=== PATIENT | female | born 1990 | race Caucasian/White ===

== ENCOUNTER 2017-07-03 12:55 | Emergency (ER) | payer MEDICARE, OTHER ==
[~2017-07-03] VITALS: Ht 180.3 cm; Wt 94.7 kg
[2017-07-03] MEDS ORDERED: [UNRECOGNIZED DRUG - REMARK] PO (13:33)
--- NOTE | 2017-07-03 14:23 | REP ---
Duplex extremity venous ultrasound: Bilateral lower extremities. History: Question DVT. Findings: The deep veins are anechoic and fully compressible from the groin to the popliteal fossa in the left and right lower extremity. Color flow imaging is homogeneous. Spectral Doppler interrogation demonstrates intact respiratory variation in flow and normal manual augmentation of flow. There is no evidence of deep vein thrombosis. Impression: Negative bilateral lower extremity duplex venous ultrasound. No evidence of deep vein thrombosis. Signed by Jovany Macias MD 07/03/2017 02:16 P
[2017-07-03 14:59] VITALS: BP 115/68
== END 2017-07-03 15:00 | disposition home or self-care (01) ==
LOC: M ED 12:55
DX: O26.893 Other specified pregnancy related conditions, third trimester (principal); R60.0 Localized edema; Z3A.26 26 weeks gestation of pregnancy

== ENCOUNTER 2017-09-30 19:49 | Inpatient (IN) | payer MEDICARE, OTHER ==
[~2017-09-30] VITALS: Ht 180.3 cm; Wt 113.2 kg
[~2017-09-30 19:49] MED LIST: [UNRECOGNIZED DRUG - REMARK] PO
[2017-09-30 20:03] VITALS: BP 118/74
[2017-09-30] MEDS ORDERED: PREN1PAK PO (20:48)
[2017-09-30 22:17] VITALS: BP 141/63
[2017-09-30 22:45] LABS: MEAN CORPUSCULAR HEMOGLOBIN 32.4 pg (27.0-33.0); MEAN CORPUSCULAR HGB CONC 33.9 g/dl (32.0-36.5); MEAN CORPUSCULAR VOLUME 95.5 fl (80.0-96.0); PLATELET COUNT, AUTOMATED 232 10^3/uL (150-450); RED CELL DISTRIBUTION WIDTH 12.1 % (11.5-14.5); WHITE BLOOD COUNT 15.1 10^3/uL (4.0-10.0)
[2017-09-30] MEDS ORDERED: OXYTOCIN 30 UNITS IN 0.9% NaCl 500ML IV BAG (J2590) As Ordered ONE (22:51)
[2017-09-30 23:02] VITALS: BP 129/73
[2017-09-30 23:17] VITALS: BP 122/61
[2017-09-30] MEDS ORDERED: OXYTOCIN DRIP 30 UNITS in APPROPRIATE DILUENT 1 EA IV SCH (23:18)
[2017-09-30] MEDS ORDERED: DOCUSATE SODIUM 100 MG CAP PO PRN (23:30)
[2017-09-30] MEDS ORDERED: LIDOCAINE 1% MDV INJ 50 ML VIAL INFIL ONE (23:30)
[2017-09-30] MEDS ORDERED: METHYLERGONOVINE MALEATE 0.2 MG TAB PO PRN (23:30)
[2017-09-30] MEDS ORDERED: MEASLES,MUMPS,RUBELLA VACCINE INJ (MMR-II) (90707) SC SCH (23:30)
[2017-09-30] MEDS ORDERED: RHOGAM 300 MCG (1500 IU) INJ (J2790) IM SCH (23:30)
[2017-09-30] MEDS ORDERED: DIBUCAINE 1% OINTMENT 30GM TOP PRN (23:30)
[2017-09-30] MEDS ORDERED: MOM 30ML SUSPENSION UDC PO PRN (23:30)
[2017-09-30] MEDS ORDERED: ANUSOL HC CREAM 30GM TOP PRN (23:30)
[2017-09-30 23:36] VITALS: BP 135/71
[2017-09-30 23:47] VITALS: BP 151/70
[2017-10-01] VITALS (37 sets, daily range): BP systolic 82–150; BP diastolic 44–78
[2017-10-01] MEDS ORDERED: OXYTOCIN DRIP 30 UNITS in APPROPRIATE DILUENT 1 EA IV ONE ×2
[2017-10-01] MEDS ORDERED: METHYLERGONOVINE MALEATE 0.2 MG/ML VIAL (J2210) As Ordered ONE ×2 (00:03→00:04)
[2017-10-01] MEDS ORDERED: miSOPROStol 200 MCG TAB (S0191) PR ONE (00:15)
[2017-10-01] MEDS ORDERED: METHYLERGONOVINE MALEATE 0.2 MG/ML VIAL (J2210) IM ONE (00:15)
[2017-10-01 02:02] LABS: MEAN CORPUSCULAR HEMOGLOBIN 32.4 pg (27.0-33.0); MEAN CORPUSCULAR HGB CONC 33.8 g/dl (32.0-36.5); MEAN CORPUSCULAR VOLUME 95.9 fl (80.0-96.0); PLATELET COUNT, AUTOMATED 186 10^3/uL (150-450); RED CELL DISTRIBUTION WIDTH 12.1 % (11.5-14.5); WHITE BLOOD COUNT 19.3 10^3/uL (4.0-10.0)
[2017-10-01] MEDS ORDERED: METHYLERGONOVINE MALEATE 0.2 MG/ML VIAL (J2210) IM STA (02:30)
[2017-10-01] MEDS ORDERED: CARBOPROST TROMETHAMINE 250 MCG/ML AMP IM ONE (02:30)
[2017-10-01] MEDS: ACETAMINOPHEN 500 MG TAB PO PRN ×2 (03:15→13:25)
[2017-10-01 05:12] LABS: MEAN CORPUSCULAR HEMOGLOBIN 32.9 pg (27.0-33.0); MEAN CORPUSCULAR HGB CONC 34.9 g/dl (32.0-36.5); MEAN CORPUSCULAR VOLUME 94.4 fl (80.0-96.0); PLATELET COUNT, AUTOMATED 220 10^3/uL (150-450); WHITE BLOOD COUNT 18.8 10^3/uL (4.0-10.0)
[2017-10-01] MEDS: IBUPROFEN 800 MG TAB PO PRN ×2 (08:17→17:43)
--- NOTE | 2017-10-01 11:03 | HPE ---
DATE OF ADMISSION: 09/30/2017 REASON FOR ADMISSION: Labor. HISTORY OF THE PRESENT ILLNESS: Mrs. Daniel is a 27-year-old 3, para 1 who presents at 39 weeks 0 days with an estimated date of delivery of 10/07/2017 with a complaint of contractions. She denied any vaginal bleeding or leakage of fluid. She presents as an unregistered patient. She obtains her care at [facility] [place] [facility] with her initiating care in the first trimester and has been appropriate throughout. PAST MEDICAL HISTORY: None. PAST SURGICAL HISTORY: None. PAST OBSTETRICAL HISTORY: She is a 3, para 1. She has had one term vaginal delivery. MEDICATIONS: None. ALLERGIES: She has no known drug allergies. SOCIAL HISTORY: Denies any alcohol, tobacco or drug use during her . PHYSICAL EXAMINATION: Vital signs stable. She is afebrile. She has a category 1 heart rate tracing with contractions on tocometer. General appearance is well appearing. No acute distress. Her abdomen is gravid, nontender. Cervical Exam: She is 5 cm dilated, completely effaced, 0 station. Her labs: Blood type is AB positive, antibody screen is negative, rubella is immune, RPR is nonreactive. Hepatitis surface antigen is negative. HIV is negative. Chlamydia and gonorrhea screens are negative. She had a normal 1-hour Glucola, and she is GBS negative. ASSESSMENT: 1. This patient is a 27-year-old 3, para 1 at 39 weeks 0 days in active labor. 2. Reassuring status. PLAN: 1. Admit to labor and delivery. CBC, RPR, type and screen, urine toxicology screen. 2. Anticipate spontaneous vaginal delivery.
--- NOTE | 2017-10-01 11:15 | DN ---
DATE: 09/30/2017 TIME OF : 2254 hours GENDER: Female. SCORES: 8 and 8. WEIGHT: 7 pounds 9 ounces, 3448 grams. ANESTHESIA: None. LACERATIONS: First-degree midline laceration. ESTIMATED BLOOD LOSS: 300 mL. COUNTS: Five laparotomy sponges accounted for prior to and after the delivery. Two sharps were removed from the delivery field. DELIVERY NOTE: On 09/30/2017, at 2254 hours, this patient, a 27-year-old, 3, now para 2 had a spontaneous vaginal delivery of a live born female infant. scores 8 and 8. Weight was 7 pounds 9 ounces at 3440 grams. Head was delivered occiput anterior (OA) followed by delivery of left anterior shoulder, right posterior shoulder and corpus. was handed to the mom with a good cry. Cord was clamped times two, was cut by the father of the baby under my direction. Cord blood was obtained. Placenta was then drained and delivered grossly intact. A premixed bag of 500 mL of normal saline with 30 units of Pitocin was bolused along with uterine massage until the uterus was firm. On inspection, there was a first-degree midline laceration, which was initially infused with 1% lidocaine, then repaired with #3-0 Vicryl Rapide. On re-inspection, the cervix, vagina and perineum were grossly intact and hemostatic. Mom and baby recovering in stable condition. The couple has decided to name their daughter
[2017-10-01] MEDS: PRENATAL VITAMINS CHEWABLE TABLET PO SCH (11:24)
[2017-10-02 01:54] VITALS: BP 110/62
[2017-10-02] MEDS: IBUPROFEN 800 MG TAB PO PRN ×2 (02:06→08:49)
[2017-10-02 05:58] VITALS: BP 102/51
[2017-10-02] MEDS ORDERED: ACET50TA PO (07:34)
[2017-10-02] MEDS ORDERED: ADVI200C5 PO (07:35)
[2017-10-02] MEDS ORDERED: COLA100C5 PO (07:36)
[2017-10-02] MEDS ORDERED: MILKSUS PO (07:38)
[2017-10-02] MEDS: PRENATAL VITAMINS CHEWABLE TABLET PO SCH (08:48)
== END 2017-10-02 14:30 | disposition home or self-care (01) | DRG 774 ==
LOC: M LDO 19:49 → MERGE 22:08 → M LDI 22:08 → M OBS 10-01 10:50
PROVIDERS: ADMIT Obstetrics & Gynecology; ATTEND Obstetrics & Gynecology
PROC: 10E0XZZ Delivery of Products of Conception, External Approach (ICD-10-PCS; principal; 2017-09-30)
PROC: 0HQ9XZZ Repair Perineum Skin, External Approach (ICD-10-PCS; 2017-09-30)
DX: O72.1 Other immediate postpartum hemorrhage (principal); Z37.0 Single live birth; Z3A.39 39 weeks gestation of pregnancy; O70.0 First degree perineal laceration during delivery

== ENCOUNTER 2017-10-04 11:47 | Emergency (ER) | payer MEDICARE, OTHER ==
[~2017-10-04] VITALS: Ht 180.3 cm; Wt 106.7 kg
[~2017-10-04 11:47] MED LIST changes: +ACET50TA PO; +ADVI200C5 PO; +COLA100C5 PO; +MILKSUS PO; +PREN1PAK PO
[2017-10-04] MEDS ORDERED: MORPHINE 4 MG/ML 1ML SYRINGE IV ONE (12:30)
[2017-10-04] MEDS ORDERED: NS 1,000 ML IV ONE (12:30)
[2017-10-04 13:04] LABS: BASO # 0.1 10^3/uL (0.0-0.2); BASO % 0.6 % (0.0-1.0); EOS # 0.3 10^3/uL (0.0-0.50); EOS % 2.6 % (0.0-3.0); IMMATURE GRANULOCYTE % 1.4 % (0-0); LYMPH # 1.5 10^3/uL (1.5-6.5); LYMPH % 12.9 % (24.0-44.0); MEAN CORPUSCULAR HEMOGLOBIN 32.8 pg (27.0-33.0); MEAN CORPUSCULAR HGB CONC 33.9 g/dl (32.0-36.5); MEAN CORPUSCULAR VOLUME 96.6 fl (80.0-96.0); MONO # 0.7 10^3/uL (0.0-0.8); NEUTROPHILS # 8.6 10^3/uL (1.8-7.7); NEUTROPHILS % 76.5 % (36.0-66.0); PLATELET COUNT, AUTOMATED 349 10^3/uL (150-450); RED CELL DISTRIBUTION WIDTH 12.7 % (11.5-14.5); WHITE BLOOD COUNT 11.2 10^3/uL (4.0-10.0)
[2017-10-04 13:15] LABS: INR 0.87
[2017-10-04 13:23] LABS: ANION GAP 5 MEQ/L (8-16); BLOOD UREA NITROGEN 13 MG/DL (7-18); CALCIUM LEVEL 8.6 MG/DL (8.5-10.1); CARBON DIOXIDE LEVEL 28 MEQ/L (21-32); CHLORIDE LEVEL 108 MEQ/L (98-107); GLOMERULAR FILTRATION RATE > 60.0 (>60); GLUCOSE, FASTING 80 MG/DL (70-105); SODIUM LEVEL 141 MEQ/L (136-145)
[2017-10-04] MEDS ORDERED: METH0.2T53 PO (15:45)
[2017-10-04 15:57] VITALS: BP 118/55
[2017-10-04] MEDS ORDERED: METHYLERGONOVINE MALEATE 0.2 MG/ML VIAL (J2210) IM ONE (16:00)
--- NOTE | 2017-10-04 20:25 | REP ---
PELVIC ULTRASOUND: Real-time sonographic evaluation of the pelvis is performed utilizing transabdominal technique. The bladder measures 5.5 x 7.6 x 10.2 cm. The uterus measures 14.1 x 8.4 x 8.1 cm. The patient is post with vaginal delivery 4 days ago. Endometrium is heterogeneous and thickened at 34 mm with no endometrial fluid. The findings may represent a combination of blood clot and retained products of conception. The right ovary measures 2.2 x 1.6 x 2.1 cm and left ovary 3.2 x 1.9 x 1.3 cm. There is no adnexal mass or free fluid. There is blood flow seen in each ovary with duplex Doppler evaluation, RI right ovary 0.53 and left ovary 0.72. IMPRESSION: Enlarged post uterus. Endometrium is heterogeneous and thickened at 34 mm. This may indicate a combination of blood clot and retained products of conception in the endometrial canal. Signed by Geovany Morales MD 10/05/2017 08:31 P
== END 2017-10-04 16:24 | disposition home or self-care (01) ==
LOC: M ED 11:47 → MERGE 11:47 → M ED 16:24
DX: O72.1 Other immediate postpartum hemorrhage (principal); O90.81 Anemia of the puerperium; R09.89 Other specified symptoms and signs involving the circulatory and respiratory systems; Z86.59 Personal history of other mental and behavioral disorders
CPT/HCPCS: 76856; 80048; 85025; 85610; 85730; 86850; 86900; 86901; 93976; 96372; 96374; 99284; J2210

== ENCOUNTER 2018-02-05 17:57 | Emergency (ER) | payer MEDICARE, OTHER ==
[2018-02-05] MEDS: KETOROLAC TROMETHAMINE 10 MG TAB PO ×2 (18:38)
== END 2018-02-05 19:42 | disposition home or self-care (01) ==
LOC: M ED 17:57
DX: S80.211A Abrasion, right knee, initial encounter (principal); W19.XXXA Unspecified fall, initial encounter; Y92.9 Unspecified place or not applicable; Y93.55 Activity, bike riding; Y99.9 Unspecified external cause status; F32.9 Major depressive disorder, single episode, unspecified
CPT/HCPCS: 73564

== ENCOUNTER → 2018-09-26 | Outpatient (REF) | payer MEDICARE, OTHER ==
[~2018-09-26] MED LIST changes: -ACET50TA PO; +KEFL500C17 PO; +MAPA500T2 PO; +METH0.2T53 PO; +MILK120011 PO; -MILKSUS PO; +MOTR200T44 PO; +NAPR-50 PO
[2018-09-27 00:25] LABS: CHLAMYDIA DNA AMPLIFICATION NEGATIVE (NEGATIVE); GC DNA AMPLIFICATION NEGATIVE (NEGATIVE)
== END ==
LOC: M SFHCLERA 12:04
PROVIDERS: ATTEND Nurse Practitioner Family
DX: R10.2 Pelvic and perineal pain (principal); J98.9 Respiratory disorder, unspecified
CPT/HCPCS: 81002; 81025; 87070; 87086; 87491; 87591; G0463